=== PATIENT | female | born 1995 | race Caucasian/White ===

== ENCOUNTER → 2019-06-06 07:13 | Outpatient (CLI) | payer BC, SELFPAY ==
--- NOTE | 2019-06-06 | DI.US.S_ITS ---
PROCEDURE: US OB <= 14 WEEKS FETUS INDICATIONS: INITIAL SIZING AND DATING OUTSIDE/PRIOR DATING DATA: Last menstrual period (LMP): 04/18/19. LMP-based estimated date of delivery (NICOLE): 01/23/20. First dating scan (date and location): , 06/06/19. Estimated date of delivery (NICOLE) from first dating scan: 01/21/20. TECHNIQUE: Real-time scanning was performed of the fetus and maternal pelvic organs, with image documentation. Endovaginal scanning was also performed to better visualize the fetus and maternal ovaries. COMPARISON: None. FINDINGS: Embryo: A single live intrauterine is seen. The measured heart rate is 139 beats per minute. The crown-rump length measures 1.2 cm, corresponding to an estimated gestational age of 7 weeks 2 days. It is too early for detailed anatomic assessment. By visual inspection, the amount of amniotic fluid is within normal limits. No significant findings of subchorionic/perigestational hemorrhage are seen. Measurement variability in dating: +/- 4 weeks by LMP, +/- 7 days by mean sac diameter (use before 6 weeks gestation if crown-rump length not able to be measured), +/- 5 days by crown-rump length (up to 8 weeks 6 days gestation), +/- 7 days by crown-rump length (up to 13 weeks 6 days gestation). Maternal organs: Ovaries are unremarkable, with a presumed right ovarian corpus luteum. Limited images through the kidneys demonstrate no hydronephrosis. IMPRESSION: A single live intrauterine is seen. No significant discrepancy is found between the estimated gestational age based on these images and the estimated gestational age based upon the given date of the last menstrual period. Dictated by: Raymundo Garibay M.D. on 06/06/2019 at 13:17 Approved by: Raymundo Garibay M.D. on 06/06/2019 at 13:18
== END ==
PROVIDERS: PCP Family Medicine; Referring Provider Family Medicine; Visit Provider Family Medicine
DX: Z34.91 Encounter for supervision of normal pregnancy, unspecified, first trimester (principal); Z3A.01 Less than 8 weeks gestation of pregnancy
CPT/HCPCS: 76801; 76817

== ENCOUNTER → 2019-09-05 08:50 | Outpatient (CLI) | payer BC, SELFPAY ==
--- NOTE | 2019-09-05 | DI.US.S_ITS ---
PROCEDURE: US OB >= 14 WEEKS FETUS INDICATIONS: 20 WEEK ANATOMY OUTSIDE/PRIOR DATING DATA: Last menstrual period (LMP): 04/18/2019. LMP-based estimated date of delivery (NICOLE): 01/23/2020. First dating scan (date and location): 06/06/2019 [facility]. Estimated date of delivery (NICOLE) from first dating scan: 01/21/2020. TECHNIQUE: Real-time scanning was performed of the fetus, with image documentation and biometric measurements. Endovaginal scanning: Not performed COMPARISON: 09/05/2019. FINDINGS: General: A single living intrauterine gestation is present. Presentation: Vertex. Placenta: Placental position is anterior fundal, without previa. Amniotic fluid index: 13.2 cm, normal range is 5-24 cm. heart rate: 149 beats per minute. Maternal cervical canal: 4.5 cm long. Normal lower limit is 2.5 cm. biometrics: Biparietal diameter: 5.1 cm. 21 weeks 3 days. Head circumference: 18.4 cm. 20 weeks 5 days. Abdominal circumference: 15.5 cm. 20 weeks 5 days. Femur length: 3.2 cm. 20 weeks 0 days. Estimated gestational age from initial scan: 20 weeks 2 days. Composite gestational age from present scan: 20 weeks 4 days Estimated weight and percentile: 356 g. 56 percentile. Measurement variability for biometric dating: +/- 7 days from 14 weeks to 15 weeks 6 days gestation, +/- 10 days from 16 weeks to 21 weeks 6 days gestation, +/- 2 weeks from 22 weeks to 27 weeks 6 days gestation, +/- 3 weeks for 28 weeks gestation or later. weight reference: 4500 g or EFW >90/95% is considered macrosomia or large for gestational age. EFW <10% is small for gestational age. EFW 5% or less is considered intra-uterine growth restriction. Anatomic survey: Neuro: Ventricles are non-dilated at less than 10 mm. Cisterna magna is normal at 3-11 mm. Cerebellum is normal in size and morphology. Nuchal skin fold: Normal at less than 6 mm between 14-21 weeks gestational age. Face: Bowel is seen. Spine: No evidence for spina bifida. Heart: Not well seen. Diaphragm: Diaphragm is intact. Stomach: Left-sided stomach is present. Kidneys: No hydronephrosis. Normal is less than 5 mm in 2nd trimester, less than 7 mm in 3rd trimester. Cord: 3-vessel cord has orthotopic insertion. Bladder: Normal in size. Extremities: All 4 extremities identified. IMPRESSION: 1. Viramontes living intrauterine at 20 weeks 4/7 days based on today's ultrasound. This is concordant with the prior ultrasound. There is interval growth. The fetus is in the 56th percentile for weight. 2. Normal placenta and amniotic fluid. 3. heart and facial structures are not well seen secondary to lie. Otherwise normal anatomy. -Recommend followup OB ultrasound. Dictated by: Linwood Casey M.D. on 09/05/2019 at 12:17 Approved by: Linwood Casey M.D. on 09/05/2019 at 12:22
== END ==
PROVIDERS: PCP Family Medicine; Referring Provider Family Medicine; Visit Provider Family Medicine
DX: Z36.89 Encounter for other specified antenatal screening (principal); Z3A.20 20 weeks gestation of pregnancy
CPT/HCPCS: 76811